=== PATIENT | female | born 1935 | race Hispanic/Latino ===

== ENCOUNTER 2018-06-16 15:54 | Inpatient (IN) | payer OTHER | END 2018-06-18 14:35 | disposition home or self-care (01) | LOC: EDH 15:54 → 2DH 06-18 05:47 → EDHIP 17:40 → 2BH 18:14 | DX: N17.9 Acute kidney failure, unspecified (principal); E87.1 Hypo-osmolality and hyponatremia; E87.5 Hyperkalemia; R00.1 Bradycardia, unspecified; I95.9 Hypotension, unspecified; E86.0 Dehydration; R19.7 Diarrhea, unspecified; E11.9 Type 2 diabetes mellitus without complications; I10 Essential (primary) hypertension ==

== ENCOUNTER 2019-05-10 02:11 | Emergency (ER) | payer OTHER ==
[~2019-05-10 02:11] MED LIST: AEC81 PO; AMLO10TA7 PO; ASCO-360 PO; ATOR20TA65 PO; CA/D1TAB7 PO; CARV12.511 PO; CHOL100018 PO; FLUT16H NASAL; FOLI-74 PO; GLIM4TAB36 PO; GLUC-145 PO; HYDR12.54 PO; LEVO5TAB13 PO; LOPE2 PO; METF-446 PO; METR500T PO; PANT40TA25 PO; RANI150T7 PO; SULF1TAB3 PO; VITA-164 PO
[2019-05-10] MEDS ORDERED: MAG HYDROX/AL HYDROX/SIMETH ES 30 ML SUSP UDCUP ONE (02:47)
[2019-05-10] MEDS ORDERED: LIDOCAINE HCL 2% VISCOUS 15 ML UDCUP ONE (02:47)
[2019-05-10] MEDS ORDERED: ALBUTEROL SULFATE 0.083% 2.5 MG/3 ML INH IH ONE (02:51)
[2019-05-10] MEDS ORDERED: DEXAMETHASONE 4 MG TAB ONE (02:52)
[2019-05-10] MEDS ORDERED: AZITHROMYCIN 250 MG TABLET PO ONE (03:34)
== END 2019-05-10 03:51 | disposition home or self-care (01) ==
LOC: EDH 02:11
DX: J20.9 Acute bronchitis, unspecified (principal); E11.9 Type 2 diabetes mellitus without complications; I10 Essential (primary) hypertension; E78.00 Pure hypercholesterolemia, unspecified
CPT/HCPCS: 71046; 94640; 99284; J8540

== ENCOUNTER 2021-02-25 22:02 | Emergency (ER) | payer OTHER ==
[~2021-02-25] VITALS: Ht 149.9 cm; Wt 46.3 kg
[~2021-02-25 22:02] MED LIST changes: +AMLO-258 PO; -AMLO10TA7 PO; -PANT40TA25 PO; +PANT40TA54 PO
[2021-02-25 23:06] VITALS: BP 116/57
[2021-02-26 01:58] LABS: BASOPHILS % (AUTO) 0.7 % (0.0-5.0); EOSINOPHILS % (AUTO) 5.7 % (0.0-8.0); HEMATOCRIT 37.3 % (36-48); LYMPHOCYTES % (AUTO) 34.8 % (21.0-51.0); MEAN CORPUSCULAR HEMOGLOBIN 29.7 pg (27.0-33.0); MEAN CORPUSCULAR HGB CONC 34.6 g/dL (32.0-36.0); MEAN CORPUSCULAR VOLUME 85.9 fL (79-99); NEUTROPHILS % (AUTO) 51.1 % (40.0-77.0); PLATELET COUNT (AUTO) 302 K/uL (130-400); RED BLOOD CELL COUNT(AUTO) 4.34 MIL/uL (4.00-5.50); RED CELL DISTRIBUTION WIDTH 12.9 % (11.0-15.5); WHITE BLOOD COUNT (AUTO) 9.2 K/uL (4.8-10.8)
[2021-02-26 02:09] LABS: CREATININE 0.9 mg/dL (0.5-1.5); POTASSIUM 3.7 mmol/L (3.5-5.1)
[2021-02-26 02:14] LABS: ALBUMIN 3.9 g/dL (3.5-5.0); BILIRUBIN,TOTAL 0.4 mg/dL (0.2-1.0); TOTAL PROTEIN, SERUM 7.5 g/dL (6.0-8.3)
== END 2021-02-26 02:26 | disposition home or self-care (01) ==
LOC: EDH 22:02
DX: E11.65 Type 2 diabetes mellitus with hyperglycemia (principal); I10 Essential (primary) hypertension; E78.00 Pure hypercholesterolemia, unspecified; Z79.82 Long term (current) use of aspirin; Z79.84 Long term (current) use of oral hypoglycemic drugs; Z79.899 Other long term (current) drug therapy
CPT/HCPCS: 36415; 71045; 80053; 85025

== ENCOUNTER 2021-05-24 12:47 | Emergency (ER) | payer OTHER ==
[~2021-05-24] VITALS: Ht 149.9 cm; Wt 47.6 kg
[2021-05-24] MEDS ORDERED: ONDANSETRON 4MG INJ IVP ONE (13:30)
[2021-05-24 13:31] LABS: BASOPHILS % (AUTO) 0.5 % (0.0-5.0); EOSINOPHILS % (AUTO) 4.9 % (0.0-8.0); LYMPHOCYTES % (AUTO) 25.1 % (21.0-51.0); MEAN CORPUSCULAR HGB CONC 34.4 g/dL (32.0-36.0); MEAN CORPUSCULAR VOLUME 87.4 fL (79-99); MONOCYTES % (AUTO) 7.2 % (3.0-13.0); NEUTROPHILS % (AUTO) 61.8 % (40.0-77.0); PLATELET COUNT (AUTO) 306 K/uL (130-400); RED BLOOD CELL COUNT(AUTO) 4.46 MIL/uL (4.00-5.50); RED CELL DISTRIBUTION WIDTH 13.5 % (11.0-15.5); WHITE BLOOD COUNT (AUTO) 9.6 K/uL (4.8-10.8)
[2021-05-24 13:42] LABS: CARBON DIOXIDE 26 mmol/L (21-32); CHLORIDE 96 mmol/L (101-111); CREATININE 0.8 mg/dL (0.5-1.5); GLOMERULAR FILTR. RATE CALC 72 mL/min (>60); GLUCOSE,RANDOM 159 mg/dL (70-105); POTASSIUM 3.9 mmol/L (3.5-5.1); SODIUM SERUM 134 mmol/L (136-145); UREA NITROGEN, BLOOD 20 mg/dL (7-18)
[2021-05-24 13:43] LABS: APPEARANCE,URINE CLOUDY (CLEAR); BILIRUBIN,URINE NEGATIVE (NEGATIVE); COLOR,URINE YELLOW (YELLOW); GLUCOSE, URINE (UA) NEGATIVE (NEGATIVE); KETONES,URINE NEGATIVE (NEGATIVE); LEUKOCYTE ESTERASE ,URINE SMALL (NEGATIVE); NITRATE,URINE NEGATIVE (NEGATIVE); OCCULT BLOOD,URINE NEGATIVE (NEGATIVE); PH,URINE 6.5 (5.0-8.0); PROTEIN,URINE TRACE mg/dL (NEGATIVE); UROBILINOGEN,URINE 0.2 mg/dL (0.2-1.0)
[2021-05-24 13:51] LABS: ALANINE AMINOTRANSFERASE 30 U/L (12-78); ALBUMIN 4.4 g/dL (3.5-5.0); ASPARTATE AMINOTRANSFERASE 25 U/L (10-37); BILIRUBIN,TOTAL 0.4 mg/dL (0.2-1.0); LIPASE 180 U/L (114-286); TOTAL PROTEIN, SERUM 8.4 g/dL (6.0-8.3)
[2021-05-24 13:52] LABS: CRP QUANTITATIVE < 2.00 mg/L (0.00-9.0)
[2021-05-24] MEDS ORDERED: MAG/ALUM/SIMETH 30 ML UDCUP PO ONE (14:00)
[2021-05-24] MEDS ORDERED: FAMOTIDINE 20MG VIAL IV ONE (14:00)
[2021-05-24 14:01] LABS: B-TYPE NATRIURETIC PEPTIDE 160 pg/mL (0-100)
[2021-05-24 14:06] LABS: BACTERIA,URINE Many /HPF (None Seen); RBC,URINE None Seen /HPF (0-1)
[2021-05-24] MEDS ORDERED: CEPH500B PO (14:18)
[2021-05-24] MEDS ORDERED: FAMO-136 PO (14:18)
[2021-05-24] MEDS ORDERED: CEFTRIAXONE 1G VIAL ONE (14:24)
[2021-05-24] MEDS ORDERED: CEFTRIAXONE 1G VIAL IVP ONE (14:30)
[2021-05-24 14:59] VITALS: BP 156/62
== END 2021-05-24 14:31 | disposition home or self-care (01) ==
LOC: EDH 12:47
DX: K59.00 Constipation, unspecified (principal); N39.0 Urinary tract infection, site not specified; R07.89 Other chest pain; E11.9 Type 2 diabetes mellitus without complications; E78.00 Pure hypercholesterolemia, unspecified; I10 Essential (primary) hypertension; I21.9 Acute myocardial infarction, unspecified; Z79.82 Long term (current) use of aspirin; Z79.84 Long term (current) use of oral hypoglycemic drugs; Z79.899 Other long term (current) drug therapy; Z90.49 Acquired absence of other specified parts of digestive tract
CPT/HCPCS: 36415; 71045; 74176; 80053; 81001; 83690; 83880; 84484; 85025; 86140; 87077; 87088; 87186; 93005 ×2; 96374; 96375; 99285; J0696; J2405; J3490

== ENCOUNTER 2021-11-22 19:36 | Inpatient (IN) | payer OTHER ==
[~2021-11-22] VITALS: Ht 149.9 cm; Wt 47.1 kg
[~2021-11-22 19:36] MED LIST changes: +CEPH500B PO; +FAMO-136 PO
[2021-11-22 20:03] LABS: BASOPHILS % (AUTO) 0.5 % (0.0-5.0); EOSINOPHILS % (AUTO) 3.3 % (0.0-8.0); HEMATOCRIT 35.1 % (36-48); LYMPHOCYTES % (AUTO) 21.4 % (21.0-51.0); MEAN CORPUSCULAR HEMOGLOBIN 29.4 pg (27.0-33.0); MEAN CORPUSCULAR HGB CONC 34.2 g/dL (32.0-36.0); MONOCYTES % (AUTO) 7.5 % (3.0-13.0); NEUTROPHILS % (AUTO) 67.1 % (40.0-77.0); PLATELET COUNT (AUTO) 292 K/uL (130-400); RED BLOOD CELL COUNT(AUTO) 4.08 MIL/uL (4.00-5.50); RED CELL DISTRIBUTION WIDTH 13.5 % (11.0-15.5); WHITE BLOOD COUNT (AUTO) 9.2 K/uL (4.8-10.8)
[2021-11-22 20:03] LABS: APPEARANCE,URINE CLEAR (CLEAR); BILIRUBIN,URINE NEGATIVE (NEGATIVE); COLOR,URINE YELLOW (YELLOW); GLUCOSE, URINE (UA) NEGATIVE (NEGATIVE); KETONES,URINE NEGATIVE (NEGATIVE); LEUKOCYTE ESTERASE ,URINE SMALL (NEGATIVE); NITRATE,URINE NEGATIVE (NEGATIVE); OCCULT BLOOD,URINE SMALL (NEGATIVE); PROTEIN,URINE NEGATIVE (NEGATIVE); UROBILINOGEN,URINE 0.2 mg/dL (0.2-1.0)
[2021-11-22 20:13] LABS: INR 0.93 (0.85-1.15); PROTHROMBIN TIME 10.1 SEC (9.6-11.6)
[2021-11-22 20:15] LABS: PARTIAL THROMBOPLASTIN TIME 25.6 SEC (26.3-35.5)
[2021-11-22 20:18] LABS: BACTERIA,URINE None Seen /HPF (None Seen); RBC,URINE None Seen /HPF (0-1); SQUAMOUS EPITHELIAL CELL,UR 0-2 /HPF (0-2); WBC,URINE 0-1 /HPF (0-1)
[2021-11-22 20:19] LABS: POTASSIUM 4.1 mmol/L (3.5-5.1)
[2021-11-22 20:23] LABS: ALBUMIN 4.1 g/dL (3.5-5.0); TOTAL PROTEIN, SERUM 7.4 g/dL (6.0-8.3)
[2021-11-22] MEDS ORDERED: IOHEXOL 350 MG/ML 100ML INFUS..BTL IV ONE (20:53)
[2021-11-22] MEDS ORDERED: 0.9% NACL 500ML IV.SOLN 500 ML IV ONE (21:00)
[2021-11-22] MEDS ORDERED: PANTOPRAZOLE 40 MG/VIAL IVP ONE (21:00)
[2021-11-22] MEDS: 0.9%NACL 1000ML 1,000 ML IV SCH (23:00)
[2021-11-22] MEDS ORDERED: ONDANSETRON 4MG INJ IV PRN (23:00)
[2021-11-22] MEDS ORDERED: ZOLPIDEM TARTRATE 5 MG TAB PO PRN (23:00)
[2021-11-22 23:29] LABS: AMMONIA 14 umol/L (11-32); THYROID STIMULATING HORMONE 0.12 uIU/mL (0.36-3.74)
[2021-11-22 23:30] LABS: CRP QUANTITATIVE < 3.00 mg/L (0.00-9.0)
[2021-11-22] MEDS: PANTOPRAZOLE 40MG INJ 80 MG in 0.9%NACL 100ML 100 ML IVP SCH (23:30)
[2021-11-22] MEDS ORDERED: CEPH500C2 PO (23:44)
[2021-11-22] MEDS ORDERED: LEVO50CA4 PO (23:44)
[2021-11-22] MEDS ORDERED: MONT-39 PO (23:44)
[2021-11-23 00:20] VITALS: BP 154/69
[2021-11-23 00:54] LABS: HEMATOCRIT 29.2 % (36-48)
[2021-11-23 04:26] VITALS: BP 108/64
[2021-11-23] MEDS: ZOSYN 3.375GM+NS 50ML 50 ML IV SCH ×3 (05:39→21:02)
[2021-11-23 06:42] LABS: BASOPHILS % (AUTO) 0.8 % (0.0-5.0); EOSINOPHILS % (AUTO) 2.8 % (0.0-8.0); HEMATOCRIT 24.6 % (36-48); LYMPHOCYTES % (AUTO) 33.7 % (21.0-51.0); MEAN CORPUSCULAR HEMOGLOBIN 29.2 pg (27.0-33.0); MEAN CORPUSCULAR HGB CONC 33.3 g/dL (32.0-36.0); MEAN CORPUSCULAR VOLUME 87.5 fL (79-99); MONOCYTES % (AUTO) 10.4 % (3.0-13.0); NEUTROPHILS % (AUTO) 51.9 % (40.0-77.0); PLATELET COUNT (AUTO) 206 K/uL (130-400); RED BLOOD CELL COUNT(AUTO) 2.81 MIL/uL (4.00-5.50); RED CELL DISTRIBUTION WIDTH 13.8 % (11.0-15.5); WHITE BLOOD COUNT (AUTO) 5.3 K/uL (4.8-10.8)
[2021-11-23 07:16] LABS: ALBUMIN 2.8 g/dL (3.5-5.0); BILIRUBIN,DIRECT 0.1 mg/dL (0.0-0.3); CREATININE 0.8 mg/dL (0.5-1.5); MAGNESIUM 1.3 mg/dL (1.80-2.40); POTASSIUM 3.5 mmol/L (3.5-5.1); TOTAL PROTEIN, SERUM 5.5 g/dL (6.0-8.3)
[2021-11-23] MEDS ORDERED: FAMOTIDINE 20MG TAB PO SCH (09:00)
[2021-11-23] MEDS ORDERED: POTASSIUM CHLORIDE 20MEQ/100ML 100 ML IV PRN ×2 (09:00)
[2021-11-23] MEDS ORDERED: CARVEDILOL 12.5 MG TABLET PO SCH (09:00)
[2021-11-23] MEDS ORDERED: AMLODIPINE 5 MG TAB PO SCH (09:00)
[2021-11-23] MEDS ORDERED: LIDOCAINE HCL-MPF 1% 2ML VIAL IV PRN ×2 (09:00)
[2021-11-23] MEDS ORDERED: NON-FORMULARY MEDICATION 1 EACH (Ranitidine HCl 150 MG) PO SCH (09:00)
[2021-11-23] MEDS ORDERED: GLUCAGON 1MG KIT 1 MG ML IM PRN (09:00)
[2021-11-23] MEDS ORDERED: DEXTROSE 50%-WATER 50 ML DISP.SYRIN IV PRN (09:00)
[2021-11-23] MEDS ORDERED: MAGNESIUM 2GM PREMIX 50ML 50 ML IV PRN (09:00)
[2021-11-23] MEDS ORDERED: POTASSIUM CHLORIDE 10% ELIXIR 20 MEQ/15 ML UDCUP PO PRN (09:00)
[2021-11-23 09:33] VITALS: BP 122/50
[2021-11-23] MEDS: 0.9%NACL 1000ML 1,000 ML IV SCH ×2 (09:35→19:00)
[2021-11-23] MEDS: CARVEDILOL 6.25 MG TABLET PO SCH ×2 (09:56→21:01)
[2021-11-23] MEDS: KCL 20 MEQ ERTAB PO PRN ×2 (09:57→12:11)
[2021-11-23] MEDS: PANTOPRAZOLE 40MG INJ 80 MG in 0.9%NACL 100ML 100 ML IVP SCH ×2 (10:17→21:01)
[2021-11-23] MEDS ORDERED: COMPOUND IV REFRIGERATED 1 EACH IVSOLN MISC PRN (10:30)
[2021-11-23] MEDS: FLUTICASONE PROPIONATE 50MCG/SPRAY 16 GM BOTTLE EN SCH (11:50)
[2021-11-23 11:55] LABS: HEMATOCRIT 25.2 % (36-48)
[2021-11-23 13:48] VITALS: BP 122/47
[2021-11-23 16:00] VITALS: BP 144/63
[2021-11-23] MEDS ORDERED: PEG 3350/NA SULF,BICARB,CL/KCL 4000 ML SOLN PO SCH (16:00)
[2021-11-23 16:01] LABS: HEMATOCRIT 27.2 % (36-48)
[2021-11-23 19:58] LABS: HEMATOCRIT 29.7 % (36-48)
[2021-11-23 20:26] VITALS: BP 156/58
[2021-11-23] MEDS: ATORVASTATIN 20 MG TABLET PO SCH (21:00)
[2021-11-24] VITALS (21 sets, daily range): BP systolic 96–173; BP diastolic 41–91
[2021-11-24 00:53] LABS: HEMATOCRIT 28.1 % (36-48)
[2021-11-24] MEDS: ZOSYN 3.375GM+NS 50ML 50 ML IV SCH ×3 (04:53→21:03)
[2021-11-24] MEDS: 0.9%NACL 1000ML 1,000 ML IV SCH ×2 (05:04→16:35)
[2021-11-24 05:08] LABS: HEMATOCRIT 21.5 % (36-48); MEAN CORPUSCULAR HEMOGLOBIN 29.6 pg (27.0-33.0); MEAN CORPUSCULAR HGB CONC 34.4 g/dL (32.0-36.0); RED BLOOD CELL COUNT(AUTO) 2.5 MIL/uL (4.00-5.50); RED CELL DISTRIBUTION WIDTH 13.5 % (11.0-15.5); WHITE BLOOD COUNT (AUTO) 7.7 K/uL (4.8-10.8)
[2021-11-24] MEDS: PANTOPRAZOLE 40MG INJ 80 MG in 0.9%NACL 100ML 100 ML IVP SCH ×2 (05:09→16:36)
[2021-11-24 05:15] LABS: CREATININE 0.7 mg/dL (0.5-1.5)
[2021-11-24] MEDS: KCL 20 MEQ ERTAB PO PRN ×3 (06:31→19:52)
[2021-11-24] MEDS: FLUTICASONE PROPIONATE 50MCG/SPRAY 16 GM BOTTLE EN SCH (09:07)
[2021-11-24] MEDS: CARVEDILOL 6.25 MG TABLET PO SCH ×2 (09:08→21:04)
[2021-11-24] MEDS ORDERED: PROPOFOL 10 MG/ML 20ML VIAL IV ONE (10:54)
[2021-11-24] MEDS ORDERED: EPHEDRINE SULFATE 50 MG/ML AMPULE ONE (11:08)
[2021-11-24] MEDS ORDERED: SIMETHICONE 40 MG/0.6 ML ML ONE (11:09)
[2021-11-24 12:42] LABS: HEMATOCRIT 26.1 % (36-48)
[2021-11-24 17:19] LABS: HEMATOCRIT 26.6 % (36-48)
[2021-11-24] MEDS: ATORVASTATIN 20 MG TABLET PO SCH (21:03)
[2021-11-24 23:05] LABS: HEMATOCRIT 22.9 % (36-48)
[2021-11-25 00:38] VITALS: BP 118/56
[2021-11-25] MEDS: PANTOPRAZOLE 40MG INJ 80 MG in 0.9%NACL 100ML 100 ML IVP SCH ×3 (03:03→21:31)
[2021-11-25] MEDS: ZOSYN 3.375GM+NS 50ML 50 ML IV SCH ×3 (04:40→21:30)
[2021-11-25 04:45] VITALS: BP 149/68
[2021-11-25 06:10] LABS: HEMATOCRIT 26.9 % (36-48)
[2021-11-25 06:21] LABS: HEMATOCRIT 26.7 % (36-48); MEAN CORPUSCULAR HEMOGLOBIN 30.1 pg (27.0-33.0); MEAN CORPUSCULAR HGB CONC 35.2 g/dL (32.0-36.0); MEAN CORPUSCULAR VOLUME 85.6 fL (79-99); RED BLOOD CELL COUNT(AUTO) 3.12 MIL/uL (4.00-5.50); RED CELL DISTRIBUTION WIDTH 13.5 % (11.0-15.5); WHITE BLOOD COUNT (AUTO) 6.1 K/uL (4.8-10.8)
[2021-11-25 06:24] LABS: CREATININE 0.7 mg/dL (0.5-1.5); POTASSIUM 3.5 mmol/L (3.5-5.1)
[2021-11-25] MEDS: KCL 20 MEQ ERTAB PO PRN ×2 (06:28→08:51)
[2021-11-25 08:00] VITALS: BP 160/68
[2021-11-25] MEDS: CARVEDILOL 6.25 MG TABLET PO SCH ×2 (08:51→21:31)
[2021-11-25] MEDS: FLUTICASONE PROPIONATE 50MCG/SPRAY 16 GM BOTTLE EN SCH (11:16)
[2021-11-25 12:00] VITALS: BP 158/58
[2021-11-25 16:00] VITALS: BP 140/61
[2021-11-25 20:30] VITALS: BP 142/59
[2021-11-25] MEDS: ATORVASTATIN 20 MG TABLET PO SCH (21:30)
[2021-11-26 00:14] VITALS: BP 146/67
[2021-11-26 04:13] VITALS: BP 135/52
[2021-11-26] MEDS: ZOSYN 3.375GM+NS 50ML 50 ML IV SCH ×3 (05:02→21:03)
[2021-11-26 05:47] LABS: HEMATOCRIT 27.2 % (36-48); MEAN CORPUSCULAR HGB CONC 34.9 g/dL (32.0-36.0); MEAN CORPUSCULAR VOLUME 85.8 fL (79-99); RED BLOOD CELL COUNT(AUTO) 3.17 MIL/uL (4.00-5.50); RED CELL DISTRIBUTION WIDTH 13.6 % (11.0-15.5); WHITE BLOOD COUNT (AUTO) 8.3 K/uL (4.8-10.8)
[2021-11-26 05:55] LABS: POTASSIUM 3.2 mmol/L (3.5-5.1)
[2021-11-26 08:00] VITALS: BP 157/60
[2021-11-26] MEDS: PANTOPRAZOLE 40MG INJ 80 MG in 0.9%NACL 100ML 100 ML IVP SCH ×2 (09:11→17:38)
[2021-11-26] MEDS: CARVEDILOL 6.25 MG TABLET PO SCH ×2 (09:11→21:04)
[2021-11-26] MEDS: FLUTICASONE PROPIONATE 50MCG/SPRAY 16 GM BOTTLE EN SCH (09:13)
[2021-11-26 12:00] VITALS: BP 141/60
[2021-11-26 16:00] VITALS: BP 167/74
[2021-11-26] MEDS: KCL 20 MEQ ERTAB PO PRN ×3 (16:12→22:01)
[2021-11-26 19:00] VITALS: BP 129/60
[2021-11-26] MEDS: ATORVASTATIN 20 MG TABLET PO SCH (21:03)
[2021-11-26] MEDS: INSULIN HUMULIN R 100 UNIT/ML 3ML SQ SCH (22:28)
[2021-11-27] VITALS: BP 120/51
[2021-11-27] MEDS: PANTOPRAZOLE 40MG INJ 80 MG in 0.9%NACL 100ML 100 ML IVP SCH (03:23)
[2021-11-27 03:59] VITALS: BP 137/71
[2021-11-27] MEDS: ZOSYN 3.375GM+NS 50ML 50 ML IV SCH (05:04)
[2021-11-27 05:05] LABS: BASOPHILS % (AUTO) 0.6 % (0.0-5.0); EOSINOPHILS % (AUTO) 4.8 % (0.0-8.0); HEMATOCRIT 27.9 % (36-48); LYMPHOCYTES % (AUTO) 27.1 % (21.0-51.0); MEAN CORPUSCULAR HEMOGLOBIN 29.4 pg (27.0-33.0); MEAN CORPUSCULAR HGB CONC 34.4 g/dL (32.0-36.0); MEAN CORPUSCULAR VOLUME 85.6 fL (79-99); MONOCYTES % (AUTO) 10.8 % (3.0-13.0); NEUTROPHILS % (AUTO) 56.2 % (40.0-77.0); PLATELET COUNT (AUTO) 205 K/uL (130-400); RED BLOOD CELL COUNT(AUTO) 3.26 MIL/uL (4.00-5.50); RED CELL DISTRIBUTION WIDTH 13.5 % (11.0-15.5); WHITE BLOOD COUNT (AUTO) 7.8 K/uL (4.8-10.8)
[2021-11-27 05:31] LABS: CREATININE 0.7 mg/dL (0.5-1.5); POTASSIUM 4.1 mmol/L (3.5-5.1); TOTAL PROTEIN, SERUM 5.9 g/dL (6.0-8.3)
[2021-11-27] MEDS: INSULIN HUMULIN R 100 UNIT/ML 3ML SQ SCH (05:53)
[2021-11-27 08:00] VITALS: BP 158/79
[2021-11-27] MEDS ORDERED: AMOX-426 PO (08:52)
[2021-11-27 09:15] VITALS: BP 158/79
[2021-11-27] MEDS: CARVEDILOL 6.25 MG TABLET PO SCH (09:15)
[2021-11-27] MEDS: FLUTICASONE PROPIONATE 50MCG/SPRAY 16 GM BOTTLE EN SCH (09:16)
== END 2021-11-27 13:59 | disposition home or self-care (01) | DRG 378 ==
LOC: EDH 19:36 → EDHIP 22:13 → 3AH 11-23 00:20
PROVIDERS: ADMIT Internal Medicine; ATTEND Internal Medicine
PROC: 30233N1 Transfusion of Nonautologous Red Blood Cells into Peripheral Vein, Percutaneous Approach (ICD-10-PCS; principal; 2021-11-24)
PROC: 0DJD8ZZ Inspection of Lower Intestinal Tract, Via Natural or Artificial Opening Endoscopic (ICD-10-PCS; 2021-11-24)
PROC: 30233N1 Transfusion of Nonautologous Red Blood Cells into Peripheral Vein, Percutaneous Approach (ICD-10-PCS; 2021-11-25)
DX: K57.31 Diverticulosis of large intestine without perforation or abscess with bleeding (principal); D62 Acute posthemorrhagic anemia; N17.9 Acute kidney failure, unspecified; N39.0 Urinary tract infection, site not specified; I10 Essential (primary) hypertension; E11.9 Type 2 diabetes mellitus without complications; K21.9 Gastro-esophageal reflux disease without esophagitis; H35.30 Unspecified macular degeneration; D72.829 Elevated white blood cell count, unspecified; Z20.822 Contact with and (suspected) exposure to COVID-19; E78.00 Pure hypercholesterolemia, unspecified; D64.9 Anemia, unspecified; E03.9 Hypothyroidism, unspecified; Z86.16 Personal history of COVID-19; Z82.49 Family history of ischemic heart disease and other diseases of the circulatory system; Z90.49 Acquired absence of other specified parts of digestive tract; K63.5 Polyp of colon
CPT/HCPCS: 36415; 45378; 71045; 74177; 80048; 80053; 80076; 81001; 82140; 82270; 82728; 82948; 83690; 83735; 83880; 84145; 84443; 85014; 85018; 85025; 85027; 85378; 85610; 85730; 86140; 86850; 86900; 86901; 86923; 87635; 93306; 93356; 97039; C9113; G0378; J1815; J2543; J2704; J3490; J7040; P9016; Q9967

== ENCOUNTER 2022-11-09 00:04 | Emergency (ER) | payer OTHER ==
[~2022-11-09] VITALS: Ht 144.8 cm; Wt 45.4 kg
[~2022-11-09 00:04] MED LIST changes: -AEC81 PO; +AMOX-426 PO; -ASCO-360 PO; -CA/D1TAB7 PO; -CEPH500B PO; +CEPH500C2 PO; -CHOL100018 PO; -FOLI-74 PO; +LEVO50CA4 PO; +LORA-868 PO; -METR500T PO; +MONT-39 PO; -PANT40TA54 PO; -SULF1TAB3 PO; -VITA-164 PO
[2022-11-09 00:56] LABS: APPEARANCE,URINE CLEAR (CLEAR); BILIRUBIN,URINE NEGATIVE (NEGATIVE); COLOR,URINE LIGHT-YELLOW (YELLOW); GLUCOSE, URINE (UA) NEGATIVE (NEGATIVE); KETONES,URINE NEGATIVE (NEGATIVE); LEUKOCYTE ESTERASE ,URINE NEGATIVE Leu/uL (NEGATIVE); NITRATE,URINE NEGATIVE (NEGATIVE); OCCULT BLOOD,URINE NEGATIVE (NEGATIVE); PH,URINE 6.5 (5.0-8.0); PROTEIN,URINE NEGATIVE (NEGATIVE); UROBILINOGEN,URINE 0.2 mg/dL (0.2-1.0)
[2022-11-09 00:58] LABS: BASOPHILS % (AUTO) 1.2 % (0.0-5.0); EOSINOPHILS % (AUTO) 4.3 % (0.0-8.0); HEMATOCRIT 36.3 % (36-48); LYMPHOCYTES % (AUTO) 26.4 % (21.0-51.0); MEAN CORPUSCULAR HEMOGLOBIN 29.9 pg (27.0-33.0); MEAN CORPUSCULAR HGB CONC 33.9 g/dL (32.0-36.0); MEAN CORPUSCULAR VOLUME 88.3 fL (79-99); MONOCYTES % (AUTO) 11.1 % (3.0-13.0); NEUTROPHILS % (AUTO) 56.7 % (40.0-77.0); PLATELET COUNT (AUTO) 308 K/uL (130-400); RED BLOOD CELL COUNT(AUTO) 4.11 MIL/uL (4.00-5.50); RED CELL DISTRIBUTION WIDTH 13.3 % (11.0-15.5); WHITE BLOOD COUNT (AUTO) 8.7 K/uL (4.8-10.8)
[2022-11-09 01:07] LABS: CREATININE 0.8 mg/dL (0.5-1.5); POTASSIUM 3.9 mmol/L (3.5-5.1)
[2022-11-09 01:14] LABS: ALBUMIN 4.3 g/dL (3.5-5.0); TOTAL PROTEIN, SERUM 7.8 g/dL (6.0-8.3)
[2022-11-09 01:32] LABS: B-TYPE NATRIURETIC PEPTIDE 89 pg/mL (0-100)
[2022-11-09] MEDS ORDERED: IOHEXOL-350 75 ML VIAL IV ONE (02:59)
[2022-11-09 07:43] VITALS: BP 158/61
[2022-11-09] MEDS ORDERED: PANTOPRAZOLE 40 MG/VIAL IVP ONE (08:30)
[2022-11-09] MEDS ORDERED: METO-296 PO (08:56)
[2022-11-09] MEDS ORDERED: PANT40TA PO (08:56)
== END 2022-11-09 09:22 | disposition home or self-care (01) ==
LOC: EDH 00:04
DX: K92.2 Gastrointestinal hemorrhage, unspecified (principal); G44.209 Tension-type headache, unspecified, not intractable; M19.90 Unspecified osteoarthritis, unspecified site; E11.9 Type 2 diabetes mellitus without complications; E78.00 Pure hypercholesterolemia, unspecified; I10 Essential (primary) hypertension; E03.9 Hypothyroidism, unspecified; Z90.49 Acquired absence of other specified parts of digestive tract
CPT/HCPCS: 99285; 74177; 96374; 71045; 82270; 84484; 80053; 83880; 85025; 83605; 81003; 36415; 93005; C9113; Q9967